=== PATIENT | male | born 1980 | race Two or more races ===

== ENCOUNTER 2020-03-07 04:55 | Emergency (ER) | payer OTHER ==
[~2020-03-07] VITALS: Ht 182.9 cm; Wt 79.4 kg
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
--- NOTE | 2020-03-07 05:26 | NUR ---
Dr. Ford at bedside for MSE
[2020-03-07] MEDS ORDERED: TETRACAINE HCL 0.5% OPHT DROP 2 ML BOTTLE ONE (05:27)
[2020-03-07] MEDS ORDERED: FLUORESCEIN SODIUM 1 MG STRIP ONE (05:27)
[2020-03-07] MEDS ORDERED: FLUORESCEIN SODIUM 1 MG STRIP OP ONE (05:30)
[2020-03-07] MEDS ORDERED: TETRACAINE HCL 0.5% OPHT DROP 2 ML BOTTLE OP ONE (05:30)
[2020-03-07] MEDS ORDERED: SODIUM/POT/SOD CHL OPHT WASH 120 ML BOTTLE ONE (05:31)
[2020-03-07] MEDS ORDERED: TDAP DIPH,PERTUSS,TET VAC/PF 0.5 ML DISP.SYRIN IM ONE ×2 (05:45→05:46)
--- NOTE | 2020-03-07 05:55 | NUR ---
Patient discharged to home in stable condition. Written and verbal after care instructions given. Patient verbalizes understanding of instructions. Stressed follow up or return to ER for worsening s/s. AA/0X4. ABLE TO SPEAK IN COMPLETE SENTENCES NO S/S DISTRESS RESPIRATIONS EVEN AND UNLABORED ALL BELONGINGS WITH PT AMBULATORY WITH STEADY GAIT
[2020-03-07] MEDS ORDERED: SODIUM/POT/SOD CHL OPHT WASH 120 ML BOTTLE OP ONE (06:00)
[2020-03-07 06:02] VITALS: BP 125/87
== END 2020-03-07 05:55 | disposition home or self-care (01) ==
LOC: ER 05:03
DX: S05.01XA Injury of conjunctiva and corneal abrasion without foreign body, right eye, initial encounter (principal); X58.XXXA Exposure to other specified factors, initial encounter; Y92.89 Other specified places as the place of occurrence of the external cause
CPT/HCPCS: 90715; A4663